=== PATIENT | female | born 1945 | race Caucasian/White ===

== ENCOUNTER 2017-11-09 20:22 | Emergency (ER) | payer MEDICARE ==
[~2017-11-09] VITALS: Ht 165.1 cm; Wt 72.6 kg
--- NOTE | 2017-11-09 21:45 | NUR ---
INJURY TO TONGUE DURING SEIZURE
--- NOTE | 2017-11-09 21:45 | NUR ---
PT RECEIVED FROM HOME W/RA C/O SEIZURE LIKE ACTIVITY. NO PAIN NOTED AT THIS TIME. NO SOB NOTED AT THIS TIME. VSS NAD NOTED. WILL CONTINUE TO MONITOR FOR ANY CHANGES. A/O X3
--- NOTE | 2017-11-09 22:19 | NUR ---
EKG AT BEDSIDE
[2017-11-09 23:01] LABS: INR 1.03 (0.87-1.13)
[2017-11-09 23:03] LABS: EOSINOPHILS # (AUTO) 0.1 /CMM (0.0-0.7); EOSINOPHILS % (AUTO) 1.1 % (0.0-6.0); HEMATOCRIT 40 % (33-45); HEMOGLOBIN 13.7 g/dL (11.5-14.8); LYMPHOCYTES # (AUTO) 1.5 /CMM (0.8-4.8); LYMPHOCYTES % (AUTO) 12.2 % (20.0-44.0); MEAN CORPUSCULAR HEMOGLOBIN 30 PG (26.0-33.0); MEAN CORPUSCULAR HGB CONC 34 g/dl (31.0-36.0); MEAN CORPUSCULAR VOLUME 88 fL (82-100); MONOCYTES # (AUTO) 0.5 /CMM (0.1-1.30); MONOCYTES % (AUTO) 3.9 % (2.0-12.0); NEUTROPHILS # (AUTO) 10.4 /CMM (1.8-8.9); NEUTROPHILS % (AUTO) 82.8 % (43.0-81.0); PLATELET COUNT (AUTO) 214 /CMM (150-450); RDW COEFFICIENT OF VARIATION 12.1 (11.5-15.0); RED BLOOD CELL COUNT(AUTO) 4.55 MIL/uL (4.0-5.2); WHITE BLOOD COUNT (AUTO) 12.5 K/uL (4.3-11.0)
[2017-11-09 23:05] LABS: ALANINE AMINOTRANSFERASE 35 U/L (12-78); ALBUMIN 3.9 g/dL (3.4-5.0); ALKALINE PHOSPHATASE 120 U/L (46-116); ASPARTATE AMINOTRANSFERASE 22 U/L (15-37); BILIRUBIN,DIRECT 0.1 mg/dL (0.0-0.2); BILIRUBIN,TOTAL 0.4 mg/dL (0.2-1.0); CALCIUM, SERUM 8.8 mg/dL (8.5-10.1); CARBON DIOXIDE 29 mmol/L (21-32); CHLORIDE 103 mmol/L (98-107); CREATININE 0.8 mg/dL (0.6-1.3); GLUCOSE 163 mg/dL (74-106); POTASSIUM 3.7 mmol/L (3.5-5.1); SODIUM SERUM 139 mmol/L (136-145); TOTAL PROTEIN, SERUM 7.8 g/dL (6.4-8.2); UREA NITROGEN, BLOOD 21 mg/dL (7-18)
[2017-11-09 23:06] LABS: ALCOHOL, BLOOD < 3 mg/dL (0-0)
--- NOTE | 2017-11-09 23:20 | NUR ---
[employer] OPERATOR AT BEDSIDE
--- NOTE | 2017-11-09 23:29 | NUR ---
PT TO CT SCAN
[2017-11-10 00:10] LABS: APPEARANCE,URINE SL CLOUDY (CLEAR); BILIRUBIN,URINE NEGATIVE (NEGATIVE); BLOOD, URINE NEGATIVE Ery/uL (NEGATIVE); COLOR,URINE DARK YELLOW (YELLOW); KETONES,URINE NEGATIVE (NEGATIVE); LEUKOCYTE ESTERASE ,URINE 1+ (NEGATIVE); NITRITE, URINE NEGATIVE (NEGATIVE); PROTEIN,URINE NEGATIVE (NEGATIVE); UGLUCOSE NEGATIVE (NEGATIVE); UROBILINOGEN,URINE 0.2 EU/dL (0.2)
[2017-11-10 00:14] LABS: BACTERIA,URINE Many /HPF (None Seen); SQUAMOUS EPITHELIAL CELL,UR Moderate /HPF (None Seen)
--- NOTE | 2017-11-10 00:22 | NUR ---
AT BEDSIDE FOR D/C INSTRUCTIONS
[2017-11-10 00:46] VITALS: BP 128/75
== END 2017-11-10 02:08 | disposition home or self-care (01) ==
LOC: ER 20:25
DX: R56.9 Unspecified convulsions (principal); N39.0 Urinary tract infection, site not specified
CPT/HCPCS: 36415; 70450; 71045; 80048; 80076; 81001; 82962; 83605; 85025; 85730; 87040 ×2; 87077; 87086; 87186; 93005; 99285; A4606; G0480; 81000-TC; Z7610

== ENCOUNTER 2023-09-02 06:57 | Inpatient (IN) | payer MEDICARE, OTHER ==
[2023-09-02] VITALS (39 sets, daily range): BP systolic 79–145; BP diastolic 49–98; TEMP 97.4–98.9; O2SAT 87–100
[~2023-09-02] VITALS: Ht 157.5 cm; Wt 60.8 kg
[2023-09-02] MEDS ORDERED: diphenhydrAMINE HCL 50 MG/ML VIAL ONE (07:29)
[2023-09-02] MEDS ORDERED: diphenhydrAMINE HCL 50 MG/ML VIAL IV ONE (07:30)
[2023-09-02] MEDS ORDERED: FAMOTIDINE/PF INJ 20 MG/2 ML VIAL IV ONE ×2 (07:30)
[2023-09-02 07:48] LABS: BASOPHILS # (AUTO) 0.1 K/uL (0.0-0.2); BASOPHILS % (AUTO) 0.3 % (0.0-2.0); EOSINOPHILS # (AUTO) 0.3 K/uL (0.0-0.7); EOSINOPHILS % (AUTO) 1.3 % (0.0-6.0); HEMATOCRIT 36 % (33-45); LYMPHOCYTES # (AUTO) 0.2 K/uL (0.8-4.8); LYMPHOCYTES % (AUTO) 0.7 % (20.0-44.0); MEAN CORPUSCULAR HEMOGLOBIN 30 PG (26.0-33.0); MEAN CORPUSCULAR HGB CONC 33 g/dl (31.0-36.0); MEAN CORPUSCULAR VOLUME 92 fL (82-100); MONOCYTES # (AUTO) 1.1 K/uL (0.1-1.30); MONOCYTES % (AUTO) 4.7 % (2.0-12.0); PLATELET COUNT (AUTO) 201 K/uL (150-450); RED BLOOD CELL COUNT(AUTO) 3.95 MIL/uL (4.0-5.2); RED CELL DISTRIBUTION WIDTH 13.4 % (11.5-15.0); WHITE BLOOD COUNT (AUTO) 22.6 K/uL (4.3-11.0)
[2023-09-02] MEDS ORDERED: ACETAMINOPHEN 650 MG/SUPP.RECT RC ONE ×2 (07:51→08:00)
[2023-09-02 07:53] LABS: CALCIUM, SERUM 8.8 mg/dL (8.5-10.1); CARBON DIOXIDE 26 mmol/L (21-32); CHLORIDE 104 mmol/L (98-107); CREATININE 0.9 mg/dL (0.6-1.3); GLUCOSE 203 mg/dL (74-106); POTASSIUM 3.9 mmol/L (3.5-5.1); SODIUM SERUM 140 mmol/L (136-145); UREA NITROGEN, BLOOD 23 mg/dL (7-18)
[2023-09-02 07:56] LABS: D-DIMER 3.67 mg/L(FEU (0.17-0.50); INR 1.16 (0.91-1.10); PARTIAL THROMBOPLASTIN TIME 28.2 SEC (24.3-34.3); PROTHROMBIN TIME 12.2 SECS (9.2-11.1)
[2023-09-02 07:59] LABS: ALANINE AMINOTRANSFERASE 26 U/L (12-78); ALBUMIN 2.9 g/dL (3.4-5.0); ALKALINE PHOSPHATASE 100 U/L (46-116); ASPARTATE AMINOTRANSFERASE 26 U/L (15-37); BILIRUBIN,DIRECT 0.2 mg/dL (0.0-0.2); BILIRUBIN,TOTAL 0.6 mg/dL (0.2-1.0); TOTAL PROTEIN, SERUM 6.6 g/dL (6.4-8.2)
[2023-09-02] MEDS ORDERED: VANCOMYCIN 1 GM in IV D5W 250 ML IV ONE (08:00)
[2023-09-02] MEDS ORDERED: CEFEPIME 1 GM in IV D5W 50 ML IV ONE (08:00)
[2023-09-02] MEDS ORDERED: IOHEXOL-350 100 ML VIAL IV ONE (08:15)
[2023-09-02] MEDS ORDERED: IV NS 0.9% 250 ML IV ONE (08:15)
[2023-09-02 08:21] LABS: LACTIC ACID 2.3 mmol/L (0.4-2.0)
[2023-09-02] MEDS ORDERED: IV NS 0.9% 1,000 ML BAG IV ONE (08:30)
[2023-09-02] MEDS ORDERED: ACETAMINOPHEN 325 MG TABLET PO PRN (09:00)
[2023-09-02] MEDS ORDERED: LEVETIRACETAM (500MG) 1,000 MG in IV NS 0.9% 90 ML IV SCH (09:00)
[2023-09-02] MEDS ORDERED: ONDANSETRON HCL/PF 4 MG/2 ML VIAL IVP PRN (09:00)
[2023-09-02] MEDS ORDERED: ALBUTEROL FS 2.5 MG/0.5 ML VIAL.NEB NEB PRN (09:00)
[2023-09-02] MEDS ORDERED: DEXTROSE 50%-WATER 50 ML DISP.SYRIN IV PRN (09:00)
[2023-09-02] MEDS ORDERED: MORPHINE SULFATE INJ 2 MG/ML DISP.SYRIN IV PRN (09:00)
[2023-09-02] MEDS ORDERED: hydrALAZINE HCL IV 20 MG VIAL IV PRN (09:00)
[2023-09-02] MEDS ORDERED: RISP2TAB5 PO (09:06)
[2023-09-02] MEDS ORDERED: NEOM1OIN15 TP (09:06)
[2023-09-02] MEDS ORDERED: DOCU100T2 PO (09:06)
[2023-09-02] MEDS ORDERED: VITC1CAP PO (09:06)
[2023-09-02] MEDS ORDERED: MIRT7.5T10 PO (09:06)
[2023-09-02] MEDS ORDERED: LOPE2CAP14 PO (09:06)
[2023-09-02] MEDS ORDERED: ONDA-97 PO (09:06)
[2023-09-02] MEDS ORDERED: LEVO137T2 PO (09:06)
[2023-09-02] MEDS ORDERED: VANC125C11 PO (09:06)
[2023-09-02] MEDS ORDERED: RISP0.5T65 PO (09:06)
[2023-09-02] MEDS ORDERED: POVI3780 TP (09:06)
[2023-09-02] MEDS ORDERED: LEVE100023 PO ×2 (09:06)
[2023-09-02] MEDS ORDERED: CARB200T PO (09:06)
[2023-09-02] MEDS ORDERED: RISP0.5T5 PO (09:06)
[2023-09-02] MEDS ORDERED: OMEP20CA15 PO (09:06)
[2023-09-02] MEDS ORDERED: MENT113O TP (09:06)
[2023-09-02] MEDS ORDERED: LORA-258 PO (09:06)
[2023-09-02] MEDS ORDERED: CEFD300C3 PO (09:06)
[2023-09-02] MEDS ORDERED: ATOR10TA PO (09:06)
[2023-09-02] MEDS ORDERED: CARBAMAZEPINE 200 MG TABLET PO SCH (09:30)
[2023-09-02] MEDS ORDERED: methylPREDNISolone SOD SUCC 40 MG/ML VIAL IV SCH (10:30)
[2023-09-02] MEDS ORDERED: LOPERAMIDE HCL (2 MG CAP) 2 MG CAPSULE PO PRN (10:30)
[2023-09-02] MEDS ORDERED: LORAZEPAM 0.5 MG TABLET PO PRN (10:30)
[2023-09-02] MEDS ORDERED: risperiDONE 0.25 MG TABLET PO PRN (11:30)
[2023-09-02] MEDS: methylPREDNISolone SOD SUCC 40 MG/ML VIAL IV SCH ×2 (11:32→18:49)
[2023-09-02] MEDS: IV NS 0.9% 1,000 ML IV SCH ×2 (11:32→23:28)
[2023-09-02] MEDS: HEPARIN SODIUM, PORCINE 5000 UNITS/1 ML VIAL SQ SCH ×2 (11:34→20:19)
[2023-09-02] MEDS: RACEPINEPHRINE HCL 2.25% NEB 0.5 ML VIAL.NEB IH SCH ×3 (11:47→20:08)
[2023-09-02] MEDS ORDERED: VANCOMYCIN HCL 125 MG/2.5 ML ORAL.SUSP PO SCH (12:00)
[2023-09-02] MEDS ORDERED: NOREPINEPHRINE 8 MG in IV NS 0.9% 242 ML IV PRN ×5 (13:00→13:30)
[2023-09-02] MEDS: INSULIN REGULAR, HUMAN 100 UNIT/ML 3 ML VIAL SQ PRN ×3 (13:41→23:29)
[2023-09-02] MEDS: BLOOD SUGAR DIAGNOSTIC 1 EACH STRIP IN SCH ×3 (13:52→23:28)
[2023-09-02] MEDS: ZOSYN IVPB 3.375 G in IV D5W 50ml IV SCH ×2 (13:57→18:50)
[2023-09-02] MEDS: MEROPENEM 1 G in IV NS 0.9% 100 ML IV SCH (13:58)
[2023-09-02] MEDS: IPRATROPIUM NEB FS 0.5 MG/2.5 ML AMPUL.NEB NEB SCH ×2 (14:18→20:08)
[2023-09-02] MEDS: ALBUTEROL FS 2.5 MG/3 ML VIAL.NEB NEB SCH ×2 (14:18→20:08)
[2023-09-02] MEDS: CARBAMAZEPINE 200 MG TABLET PO SCH (17:00)
[2023-09-02] MEDS: DOCUSATE SODIUM 100 MG CAPSULE PO SCH (17:00)
[2023-09-02] MEDS: LEVETIRACETAM (250 MG) 250 MG TABLET PO SCH (17:37)
[2023-09-02] MEDS ORDERED: LEVETIRACETAM (500MG) 250 MG in IV NS 0.9% 100 ML IV ONE (18:00)
[2023-09-02] MEDS: VANCOMYCIN 500 MG in IV D5W 100ml IV SCH (20:16)
[2023-09-02] MEDS: risperiDONE 1 MG TABLET PO SCH (21:40)
[2023-09-02] MEDS: ATORVASTATIN 10 MG TABLET PO SCH (21:40)
[2023-09-03] VITALS (27 sets, daily range): BP systolic 87–143; BP diastolic 54–86; TEMP 96.3–98.5; O2SAT 88–100
[2023-09-03] MEDS: ZOSYN IVPB 3.375 G in IV D5W 50ml IV SCH ×2 (00:47→06:03)
[2023-09-03] MEDS: MEROPENEM 1 G in IV NS 0.9% 100 ML IV SCH ×2 (01:23→12:00)
[2023-09-03] MEDS: RACEPINEPHRINE HCL 2.25% NEB 0.5 ML VIAL.NEB IH SCH ×2 (01:46→08:12)
[2023-09-03] MEDS: ALBUTEROL FS 2.5 MG/3 ML VIAL.NEB NEB SCH ×4 (01:46→20:29)
[2023-09-03] MEDS: IPRATROPIUM NEB FS 0.5 MG/2.5 ML AMPUL.NEB NEB SCH ×4 (01:46→20:29)
[2023-09-03] MEDS: methylPREDNISolone SOD SUCC 40 MG/ML VIAL IV SCH ×2 (02:44→10:02)
[2023-09-03 03:01] LABS: APPEARANCE,URINE CLOUDY (CLEAR); BILIRUBIN,URINE NEGATIVE (NEGATIVE); BLOOD, URINE NEGATIVE Ery/uL (NEGATIVE); COLOR,URINE YELLOW (YELLOW); KETONES,URINE TRACE mg/dL (NEGATIVE); LEUKOCYTE ESTERASE ,URINE NEGATIVE (NEGATIVE); NITRITE, URINE NEGATIVE (NEGATIVE); PH,URINE 5.5 (5.0-8.0); PROTEIN,URINE TRACE mg/dl (NEGATIVE); UGLUCOSE 1+ mg/dL (NEGATIVE); UROBILINOGEN,URINE 0.2 EU/dL (0.2)
[2023-09-03 03:08] LABS: ADD URINE CULTURE NO; BACTERIA,URINE Few /HPF (None Seen); MUCUS,URINE Few /LPF (None Seen); RBC,URINE NONE SEEN /HPF (0-2); SQUAMOUS EPITHELIAL CELL,UR None Seen /HPF (None Seen); URINE AMORPHOUS URATE Many /HPF (None Seen); WBC,URINE NONE SEEN /HPF (0-3)
[2023-09-03 05:09] LABS: BASOPHILS % (AUTO) 0.1 % (0.0-2.0); EOSINOPHILS # (AUTO) 1.4 K/uL (0.0-0.7); EOSINOPHILS % (AUTO) 8.7 % (0.0-6.0); HEMATOCRIT 30 % (33-45); HEMOGLOBIN 9.6 g/dL (11.5-14.8); LYMPHOCYTES % (AUTO) 6.1 % (20.0-44.0); MEAN CORPUSCULAR HEMOGLOBIN 30 PG (26.0-33.0); MEAN CORPUSCULAR HGB CONC 32 g/dl (31.0-36.0); MEAN CORPUSCULAR VOLUME 94 fL (82-100); MONOCYTES # (AUTO) 0.7 K/uL (0.1-1.30); MONOCYTES % (AUTO) 4.3 % (2.0-12.0); NEUTROPHILS # (AUTO) 12.7 K/uL (1.8-8.9); NEUTROPHILS % (AUTO) 80.8 % (43.0-81.0); PLATELET COUNT (AUTO) 137 K/uL (150-450); RED BLOOD CELL COUNT(AUTO) 3.18 MIL/uL (4.0-5.2); RED CELL DISTRIBUTION WIDTH 13.4 % (11.5-15.0); WHITE BLOOD COUNT (AUTO) 15.7 K/uL (4.3-11.0)
[2023-09-03 05:17] LABS: ALANINE AMINOTRANSFERASE 20 U/L (12-78); ALBUMIN 2.1 g/dL (3.4-5.0); ALKALINE PHOSPHATASE 80 U/L (46-116); ASPARTATE AMINOTRANSFERASE 16 U/L (15-37); BILIRUBIN,TOTAL 0.3 mg/dL (0.2-1.0); CALCIUM, SERUM 7.7 mg/dL (8.5-10.1); CARBON DIOXIDE 26 mmol/L (21-32); CHLORIDE 108 mmol/L (98-107); CREATININE 0.6 mg/dL (0.6-1.3); GLUCOSE 141 mg/dL (74-106); MAGNESIUM 2.2 mg/dL (1.8-2.4); PHOSPHORUS 2.9 mg/dL (2.5-4.9); POTASSIUM 3.5 mmol/L (3.5-5.1); SODIUM SERUM 141 mmol/L (136-145); TOTAL PROTEIN, SERUM 5.4 g/dL (6.4-8.2); UREA NITROGEN, BLOOD 18 mg/dL (7-18)
[2023-09-03 05:29] LABS: ABG BASE EXCESS 0.3 mmol/L; ABG OXYGEN SATURATION 95.2 % (92.0-98.5); ABG PCO2 40.1 mmHg (35.0-45.0); ABG PH 7.411 (7.350-7.450); ABG TOTAL HEMOGLOBIN 11.3 G/dL (12.0-16.0); MetHb 0.3 % (0.0-1.5); O2Hb 94.9 % (94.0-97.0); SITE, ABG Left Radial; VENT MODE, BG 6LPM NC
[2023-09-03] MEDS: BLOOD SUGAR DIAGNOSTIC 1 EACH STRIP IN SCH ×4 (07:54→22:00)
[2023-09-03] MEDS: INSULIN REGULAR, HUMAN 100 UNIT/ML 3 ML VIAL SQ PRN ×3 (08:02→17:40)
[2023-09-03] MEDS: LEVOTHYROXINE SODIUM 137 MCG TABLET PO SCH (08:30)
[2023-09-03] MEDS: DOCUSATE SODIUM 100 MG CAPSULE PO SCH ×2 (08:34→17:27)
[2023-09-03] MEDS: risperiDONE 0.25 MG TABLET PO SCH (08:34)
[2023-09-03] MEDS: HEPARIN SODIUM, PORCINE 5000 UNITS/1 ML VIAL SQ SCH ×2 (08:36→22:42)
[2023-09-03] MEDS: CARBAMAZEPINE 200 MG TABLET PO SCH ×2 (08:36→17:27)
[2023-09-03] MEDS: VANCOMYCIN 500 MG in IV D5W 100ml IV SCH ×2 (08:36→19:44)
[2023-09-03] MEDS: LEVETIRACETAM (250 MG) 250 MG TABLET PO SCH ×2 (08:36→17:28)
[2023-09-03] MEDS: PANTOPRAZOLE 40 MG TABLET.DR PO SCH (08:36)
[2023-09-03] MEDS: PIPERACILLIN /TAZOBACTAM 3.375 G in IV D5W 100 ML IV SCH ×2 (12:00→21:07)
[2023-09-03] MEDS: GLUCERNA SHAKE 237 ML CAN PO SCH (13:44)
[2023-09-03] MEDS: ATORVASTATIN 10 MG TABLET PO SCH (21:27)
[2023-09-03] MEDS: risperiDONE 1 MG TABLET PO SCH (21:30)
[2023-09-04] VITALS (12 sets, daily range): BP systolic 112–165; BP diastolic 47–91; TEMP 97.4–99.7; O2SAT 94–100
[2023-09-04] MEDS: MEROPENEM 1 G in IV NS 0.9% 100 ML IV SCH (01:05)
[2023-09-04] MEDS: ALBUTEROL FS 2.5 MG/3 ML VIAL.NEB NEB SCH ×4 (01:30→20:09)
[2023-09-04] MEDS: IPRATROPIUM NEB FS 0.5 MG/2.5 ML AMPUL.NEB NEB SCH ×4 (01:30→20:09)
[2023-09-04] MEDS: PIPERACILLIN /TAZOBACTAM 3.375 G in IV D5W 100 ML IV SCH (04:55)
[2023-09-04] MEDS: BLOOD SUGAR DIAGNOSTIC 1 EACH STRIP IN SCH ×4 (06:46→22:28)
[2023-09-04] MEDS: LEVOTHYROXINE SODIUM 137 MCG TABLET PO SCH (08:14)
[2023-09-04 08:34] LABS: CALCIUM, SERUM 8.1 mg/dL (8.5-10.1); CREATININE 0.6 mg/dL (0.6-1.3); POTASSIUM 2.9 mmol/L (3.5-5.1)
[2023-09-04] MEDS: GLUCERNA SHAKE 237 ML CAN PO SCH ×2 (09:00→13:43)
[2023-09-04] MEDS: PANTOPRAZOLE 40 MG TABLET.DR PO SCH (09:20)
[2023-09-04] MEDS: CARBAMAZEPINE 200 MG TABLET PO SCH ×2 (09:20→17:17)
[2023-09-04] MEDS: DOCUSATE SODIUM 100 MG CAPSULE PO SCH ×2 (09:20→17:17)
[2023-09-04] MEDS: risperiDONE 0.25 MG TABLET PO SCH (09:20)
[2023-09-04] MEDS: LEVETIRACETAM (250 MG) 250 MG TABLET PO SCH ×2 (09:21→17:17)
[2023-09-04] MEDS: HEPARIN SODIUM, PORCINE 5000 UNITS/1 ML VIAL SQ SCH ×2 (09:21→21:35)
[2023-09-04] MEDS: DOXYCYCLINE HYCLATE (100 MG) 100 MG TABLET PO SCH ×2 (09:24→21:32)
[2023-09-04] MEDS: SULFAMETH/TRIMETH 800/160 MG 1 UDTAB TABLET PO SCH ×2 (12:19→21:32)
[2023-09-04] MEDS: POTASSIUM CHLORIDE 20 MEQ TAB.PRT.SR PO SCH ×3 (12:20→13:31)
[2023-09-04] MEDS: INSULIN REGULAR, HUMAN 100 UNIT/ML 3 ML VIAL SQ PRN ×2 (12:30→17:25)
[2023-09-04] MEDS ORDERED: Sulfameth/Trimeth 800/160 Mg PO (12:59)
[2023-09-04] MEDS ORDERED: DOXY100T2 PO (12:59)
[2023-09-04] MEDS: risperiDONE 1 MG TABLET PO SCH (21:32)
[2023-09-04] MEDS: ATORVASTATIN 10 MG TABLET PO SCH (21:32)
[2023-09-05] VITALS (10 sets, daily range): BP systolic 141–155; BP diastolic 80–92; TEMP 97–98.1; O2SAT 94–99
[2023-09-05] MEDS: IPRATROPIUM NEB FS 0.5 MG/2.5 ML AMPUL.NEB NEB SCH ×3 (02:29→13:46)
[2023-09-05] MEDS: ALBUTEROL FS 2.5 MG/3 ML VIAL.NEB NEB SCH ×3 (02:29→13:46)
[2023-09-05 07:07] LABS: BASOPHILS % (AUTO) 0.4 % (0.0-2.0); EOSINOPHILS # (AUTO) 2.9 K/uL (0.0-0.7); HEMATOCRIT 38 % (33-45); HEMOGLOBIN 12.6 g/dL (11.5-14.8); LYMPHOCYTES # (AUTO) 2.8 K/uL (0.8-4.8); LYMPHOCYTES % (AUTO) 26.5 % (20.0-44.0); MEAN CORPUSCULAR HEMOGLOBIN 31 PG (26.0-33.0); MEAN CORPUSCULAR HGB CONC 33 g/dl (31.0-36.0); MEAN CORPUSCULAR VOLUME 93 fL (82-100); MONOCYTES # (AUTO) 0.7 K/uL (0.1-1.30); MONOCYTES % (AUTO) 6.4 % (2.0-12.0); NEUTROPHILS # (AUTO) 4.1 K/uL (1.8-8.9); NEUTROPHILS % (AUTO) 39.1 % (43.0-81.0); PLATELET COUNT (AUTO) 182 K/uL (150-450); RED BLOOD CELL COUNT(AUTO) 4.09 MIL/uL (4.0-5.2); RED CELL DISTRIBUTION WIDTH 13.2 % (11.5-15.0); WHITE BLOOD COUNT (AUTO) 10.5 K/uL (4.3-11.0)
[2023-09-05 07:15] LABS: EOSINOPHILS % (AUTO) 27.6 % (0.0-6.0)
[2023-09-05 07:23] LABS: CALCIUM, SERUM 8.7 mg/dL (8.5-10.1); CARBON DIOXIDE 26 mmol/L (21-32); CHLORIDE 103 mmol/L (98-107); CREATININE 0.5 mg/dL (0.6-1.3); GLUCOSE 110 mg/dL (74-106); MAGNESIUM 2.1 mg/dL (1.8-2.4); PHOSPHORUS 3.4 mg/dL (2.5-4.9); POTASSIUM 3.8 mmol/L (3.5-5.1); SODIUM SERUM 137 mmol/L (136-145); UREA NITROGEN, BLOOD 11 mg/dL (7-18)
[2023-09-05 08:32] LABS: BAND % (MANUAL) 1 % (0.0-5.0); EOSINOPHILS % (MANUAL) 25 % (0-4); LYMPHOCYTES % (MANUAL) 36 % (16-48); MONOCYTES % (MANUAL) 4 % (0-11.0); MYELOCYTES % 2 % (0-0); NEUTROPHILS % (MANUAL) 32 (42-76)
[2023-09-05 08:33] LABS: PLATELET ESTIMATE ADEQUATE
[2023-09-05] MEDS: HEPARIN SODIUM, PORCINE 5000 UNITS/1 ML VIAL SQ SCH (09:20)
[2023-09-05] MEDS: DOCUSATE SODIUM 100 MG CAPSULE PO SCH (09:21)
[2023-09-05] MEDS: risperiDONE 0.25 MG TABLET PO SCH (09:21)
[2023-09-05] MEDS: CARBAMAZEPINE 200 MG TABLET PO SCH (09:21)
[2023-09-05] MEDS: DOXYCYCLINE HYCLATE (100 MG) 100 MG TABLET PO SCH (09:21)
[2023-09-05] MEDS: LEVOTHYROXINE SODIUM 137 MCG TABLET PO SCH (09:21)
[2023-09-05] MEDS: PANTOPRAZOLE 40 MG TABLET.DR PO SCH (09:21)
[2023-09-05] MEDS: LEVETIRACETAM (250 MG) 250 MG TABLET PO SCH (09:21)
[2023-09-05] MEDS: SULFAMETH/TRIMETH 800/160 MG 1 UDTAB TABLET PO SCH (09:21)
[2023-09-05] MEDS: BLOOD SUGAR DIAGNOSTIC 1 EACH STRIP IN SCH ×2 (09:22→12:56)
[2023-09-05] MEDS: GLUCERNA SHAKE 237 ML CAN PO SCH (09:23)
== END 2023-09-05 19:09 | DRG 193 ==
LOC: ER 07:13 → ICU 10:46 → TELE1 09-03 15:04
PROVIDERS: ADMIT Internal Medicine
PROC: 05H633Z Insertion of Infusion Device into Left Subclavian Vein, Percutaneous Approach (ICD-10-PCS; principal; 2023-09-02)
PROC: B547ZZA Ultrasonography of Left Subclavian Vein, Guidance (ICD-10-PCS; 2023-09-02)
DX: J15.9 Unspecified bacterial pneumonia (principal); J96.01 Acute respiratory failure with hypoxia; E87.20 Acidosis, unspecified; Z20.822 Contact with and (suspected) exposure to COVID-19; E03.9 Hypothyroidism, unspecified; I10 Essential (primary) hypertension; J38.5 Laryngeal spasm; Z87.01 Personal history of pneumonia (recurrent); F03.90 Unspecified dementia, unspecified severity, without behavioral disturbance, psychotic disturbance, mood disturbance, and anxiety; L27.1 Localized skin eruption due to drugs and medicaments taken internally; T36.1X5A Adverse effect of cephalosporins and other beta-lactam antibiotics, initial encounter; Y92.009 Unspecified place in unspecified non-institutional (private) residence as the place of occurrence of the external cause; D72.829 Elevated white blood cell count, unspecified; G40.909 Epilepsy, unspecified, not intractable, without status epilepticus; T38.0X5A Adverse effect of glucocorticoids and synthetic analogues, initial encounter
CPT/HCPCS: 36415; 36600; 70450-TC; 71045-TC; 80048-TC; 80053-TC; 80076-TC; 80202-TC; 81001; 82803-TC; 82962-TC; 83605-TC; 83735-TC; 84100-TC; 84484-TC; 85025-TC; 85378-TC; 85730-TC; 86850-TC; 87040-TC; 87081-TC; 87086-TC; 92526; 92611-TC; 94799-TC; 97116-TC; 97530-TC; A4223; C9803; G0378; J0692; J1200; J1644; J1815; J1953; J2185; J2543; J2920; J3370; J3490; J7030; J7040; J7050; J7060; Q9967

== ENCOUNTER 2024-09-27 12:24 | Emergency (ER) | payer OTHER ==
[~2024-09-27] VITALS: Ht 154.9 cm; Wt 62.1 kg
[~2024-09-27 12:24] MED LIST: ATOR10TA PO; CARB200T PO; DOCU100T2 PO; DOXY100T2 PO; LEVE100023 PO; LEVO137T2 PO; LOPE2CAP14 PO; LORA-258 PO; MENT113O TP; MIRT7.5T10 PO; NEOM1OIN15 TP; OMEP20CA15 PO; ONDA-97 PO; POVI3780 TP; RISP0.5T5 PO; RISP0.5T65 PO; RISP2TAB5 PO; Sulfameth/Trimeth 800/160 Mg PO; VITC1CAP PO
[2024-09-27] MEDS ORDERED: IOHEXOL-350 100 ML VIAL IV ONE (12:39)
[2024-09-27] MEDS ORDERED: IV NS 0.9% 250 ML IV ONE (12:41)
[2024-09-27 12:48] LABS: BASOPHILS % (AUTO) 0.3 % (0.0-2.0); EOSINOPHILS % (AUTO) 0.5 % (0.0-6.0); HEMATOCRIT 41 % (33-45); HEMOGLOBIN 13.7 g/dL (11.5-14.8); LYMPHOCYTES # (AUTO) 1.6 K/uL (0.8-4.8); LYMPHOCYTES % (AUTO) 15.9 % (20.0-44.0); MEAN CORPUSCULAR HEMOGLOBIN 31 PG (26.0-33.0); MEAN CORPUSCULAR HGB CONC 33 g/dl (31.0-36.0); MEAN CORPUSCULAR VOLUME 94 fL (82-100); MONOCYTES # (AUTO) 0.9 K/uL (0.1-1.30); NEUTROPHILS # (AUTO) 7.3 K/uL (1.8-8.9); NEUTROPHILS % (AUTO) 74.3 % (43.0-81.0); PLATELET COUNT (AUTO) 170 K/uL (150-450); RED BLOOD CELL COUNT(AUTO) 4.37 MIL/uL (4.0-5.2); RED CELL DISTRIBUTION WIDTH 12.6 % (11.5-15.0); WHITE BLOOD COUNT (AUTO) 9.8 K/uL (4.3-11.0)
[2024-09-27 13:08] LABS: ALANINE AMINOTRANSFERASE 46 U/L (12-78); ALBUMIN 3.3 g/dL (3.4-5.0); ALKALINE PHOSPHATASE 107 U/L (46-116); ASPARTATE AMINOTRANSFERASE 34 U/L (15-37); BILIRUBIN,DIRECT 0.1 mg/dL (0.0-0.2); BILIRUBIN,TOTAL 0.4 mg/dL (0.2-1.0); CALCIUM, SERUM 8.3 mg/dL (8.5-10.1); CARBON DIOXIDE 32 mmol/L (21-32); CHLORIDE 110 mmol/L (98-107); CREATININE 0.7 mg/dL (0.6-1.3); GLUCOSE 145 mg/dL (74-106); INR 1.12 (0.91-1.10); PARTIAL THROMBOPLASTIN TIME 28.2 SEC (24.3-34.3); POTASSIUM 3.8 mmol/L (3.5-5.1); PROTHROMBIN TIME 11.8 SECS (9.2-11.1); SODIUM SERUM 145 mmol/L (136-145); TOTAL PROTEIN, SERUM 7.1 g/dL (6.4-8.2); UREA NITROGEN, BLOOD 18 mg/dL (7-18)
[2024-09-27 14:49] LABS: APPEARANCE,URINE CLEAR (CLEAR); BILIRUBIN,URINE NEGATIVE (NEGATIVE); BLOOD, URINE TRACE-INTA Ery/uL (NEGATIVE); COLOR,URINE YELLOW (YELLOW); KETONES,URINE NEGATIVE (NEGATIVE); LEUKOCYTE ESTERASE ,URINE NEGATIVE (NEGATIVE); NITRITE, URINE NEGATIVE (NEGATIVE); PH,URINE 5.5 (5.0-8.0); PROTEIN,URINE 1+ mg/dl (NEGATIVE); UGLUCOSE NEGATIVE (NEGATIVE); UROBILINOGEN,URINE 0.2 EU/dL (0.2)
[2024-09-27 15:28] LABS: ADD URINE CULTURE NO; BACTERIA,URINE Few /HPF (None Seen); SQUAMOUS EPITHELIAL CELL,UR Few /HPF (None Seen)
[2024-09-27] MEDS ORDERED: NITR50CA PO (15:39)
[2024-09-27] MEDS ORDERED: LACT-15 PO (15:39)
[2024-09-27] MEDS ORDERED: RISP1TAB97 PO (15:39)
[2024-09-27] MEDS ORDERED: L. R1TAB PO (15:39)
[2024-09-27] MEDS ORDERED: LIDO76.5 TP (15:39)
[2024-09-27] MEDS ORDERED: ALBU2.5V38 NEB (15:39)
[2024-09-27] MEDS ORDERED: NYST15PO4 TP (15:39)
[2024-09-27] MEDS ORDERED: ACET-637 PO (15:39)
[2024-09-27] MEDS ORDERED: TRIA80CR2 TP (15:39)
[2024-09-27] MEDS ORDERED: PETR368J TP (15:39)
[2024-09-27] MEDS: IV NS 0.9% 500 ML BAG IV ONE (15:56)
[2024-09-27] MEDS ORDERED: diphenhydrAMINE HCL 25 MG CAPSULE ONE (16:49)
[2024-09-27] MEDS: diphenhydrAMINE HCL ELIX 25 MG/10 ML UDC PO ONE (16:57)
[2024-09-27 17:19] VITALS: BP 118/82; TEMP 98.1; O2SAT 98
== END 2024-09-27 17:20 ==
LOC: ER 12:25
DX: R41.82 Altered mental status, unspecified (principal); M54.2 Cervicalgia; E03.9 Hypothyroidism, unspecified; E78.5 Hyperlipidemia, unspecified; G30.9 Alzheimer's disease, unspecified; F02.80 Dementia in other diseases classified elsewhere, unspecified severity, without behavioral disturbance, psychotic disturbance, mood disturbance, and anxiety; G40.909 Epilepsy, unspecified, not intractable, without status epilepticus; R29.810 Facial weakness; Z79.899 Other long term (current) drug therapy; Z86.69 Personal history of other diseases of the nervous system and sense organs; Z87.09 Personal history of other diseases of the respiratory system; Z87.19 Personal history of other diseases of the digestive system
CPT/HCPCS: 99285; 70498; 93005; 70496; 85025; 80048; 80076; 81001; 36415; 84443; 84484; 85730; 82962; 70450; Q0163; J7050; J7040; Q9967